=== PATIENT | male | born 1945 | race Caucasian/White ===

== ENCOUNTER → 2017-06-17 | Outpatient (CLI) | payer MEDICARE ==
[~2017-06-17] MED LIST: ALLO100T30 PO; AMOX1TAB61 PO; ASPI-496 PO; CARV6.2512 PO; CLOP75TA22 PO; ENOX150S5 SQ; GABA300C10 PO; HYDR-3307 PO; LISI2.5T PO; METF500T4 PO; POTA10TA11 PO; SPIR25TA3 PO; TAMS-11 PO; WARF6TAB PO
== END | disposition home or self-care (01) ==
LOC: RAD 09:48
PROVIDERS: ATTEND Psychiatry & Neurology Neurology
DX: R13.10 Dysphagia, unspecified (principal)
CPT/HCPCS: 74230

== ENCOUNTER 2018-12-03 09:51 | Outpatient (CLI) | payer MEDICARE ==
[~2018-12-03 09:51] MED LIST changes: -CLOP75TA22 PO; +CLOP75TA52 PO; +METF500T17 PO; -METF500T4 PO; -SPIR25TA3 PO; +SPIR25TA5 PO
== END 2018-12-03 23:59 | disposition home or self-care (01) ==
LOC: CVU 09:51
PROVIDERS: ATTEND Podiatrist Foot & Ankle Surgery
DX: E11.51 Type 2 diabetes mellitus with diabetic peripheral angiopathy without gangrene (principal); E78.5 Hyperlipidemia, unspecified; I10 Essential (primary) hypertension; I25.10 Atherosclerotic heart disease of native coronary artery without angina pectoris; Z86.73 Personal history of transient ischemic attack (TIA), and cerebral infarction without residual deficits; Z85.46 Personal history of malignant neoplasm of prostate; Z95.5 Presence of coronary angioplasty implant and graft; Z87.891 Personal history of nicotine dependence
CPT/HCPCS: 93922